=== PATIENT | female | born 1995 | race Caucasian/White ===

== ENCOUNTER 2021-07-20 17:01 | Emergency (ER) | payer OTHER, BC | END 2021-07-20 18:55 | disposition home or self-care (01) | LOC: ERS 17:01 | DX: M54.2 Cervicalgia (principal); E04.1 Nontoxic single thyroid nodule; V47.5XXA Car driver injured in collision with fixed or stationary object in traffic accident, initial encounter | CPT/HCPCS: 70450; 71045; 72100; 72125; 72170 ==